=== PATIENT | male | born 2000 | race Caucasian/White ===

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

== ENCOUNTER 2022-05-29 07:08 | Emergency (ER) | payer BC ==
[~2022-05-29] VITALS: Ht 175.3 cm; Wt 52.2 kg
[~2022-05-29 07:08] MED LIST changes: +ZYRTEC10 M3 PO
== END 2022-05-29 08:44 | disposition home or self-care (01) ==
LOC: ED 07:08
DX: R06.4 Hyperventilation (principal); R53.1 Weakness; Z88.8 Allergy status to other drugs, medicaments and biological substances
CPT/HCPCS: 36415; 80053; 81003; 85025; 99284; G0480; J7030